=== PATIENT | male | born 1990 | race Caucasian/White ===

== ENCOUNTER 2017-08-11 08:51 | Emergency (ER) | payer BC ==
[~2017-08-11] VITALS: Ht 182.9 cm; Wt 101.4 kg
[~2017-08-11 08:51] MED LIST: ALBU1AER9 INH; BUSP5TAB59 PO; DICY20TA35 PO; METHPOW7 PO; MULT-506 PO; POLY335019 PO
[2017-08-11 09:02] VITALS: TEMP 36.4; Ht 182.9 cm; Wt 101.4 kg
[2017-08-11] MEDS ORDERED: SODIUM CHLORIDE 0.9% 1000ML 1,000 ML IV STA (09:21)
[2017-08-11] MEDS ORDERED: FOSAPREPITANT DIMEGLUMINE INJ 150 MG in SODIUM CHLORIDE 0.9% 150ML 145 ML IV ONE (09:30)
[2017-08-11 09:58] LABS: BASO % 0.2 %; BASO ABS # 0.02 K/uL (0-0.2); COMPLETE YES; IG% 0.3 %; LYMPH % 8.1 %; LYMPH ABS # 0.77 K/uL (1.2-3.4); MEAN CORPUSCULAR HEMOGLOBIN 30.6 pg (25-34); MEAN CORPUSCULAR HGB CONC 35.6 g/dl (32-36); MEAN PLATELET VOLUME 10.2 fL (7.4-10.4); MONO % 2.9 %; NEUT % 88.5 %; PLATELET COUNT 228 K/uL (130-400); RED BLOOD COUNT 5.23 M/uL (4.7-6.1); WHITE BLOOD COUNT 9.53 K/uL (4.8-10.8)
--- NOTE | 2017-08-11 10:06 | DIAGNOSTIC IMAGING REPORT ---
ABDOMEN 2VIEW W/PA CHEST RTN CLINICAL HISTORY: Abdominal pain and vomiting COMPARISON STUDY: 04/13/2015 FINDINGS: The erect chest reveals no evidence of free air. There is no evidence of focal pulmonary consolidation.] Erect and supine views of the abdomen reveal no abnormally dilated loops of large or small bowel. There are no transition zone to indicate bowel obstruction. IMPRESSION: No evidence of bowel obstruction. No evidence of free air. Electronically signed by: Yohannes Alston M.D. 08/11/2017 10:04 AM Dictated Date/Time: 08/11/2017 10:04 AM
[2017-08-11 10:15] LABS: BUN/CREATININE RATIO 13.2 (10-20); CALCIUM 9.4 mg/dl (8.5-10.1); CREATININE 1.39 mg/dl (0.60-1.40); POTASSIUM 3.9 mmol/L (3.5-5.1)
[2017-08-11] MEDS ORDERED: OPTIRAY 320 IV PRN (10:45)
[2017-08-11] MEDS ORDERED: VNTHFA/IN INH (11:32)
[2017-08-11 11:33] LABS: URINE APPEARANCE CLEAR (CLEAR); URINE BILIRUBIN NEG (NEG); URINE COLOR YELLOW; URINE EPITHELIAL CELL AUTO 0-5 /lpf (0-5); URINE NITRITE NEG (NEG); URINE PH >= 9.0 (4.5-7.5); URINE SPECIFIC GRAVITY 1.031 (1.000-1.030); UROBILINOGEN NEG (NEG)
--- NOTE | 2017-08-11 11:34 | DIAGNOSTIC IMAGING REPORT ---
CT OF THE ABDOMEN AND PELVIS WITH CONTRAST CLINICAL HISTORY: Bilateral lower abdominal pain and cramping. COMPARISON STUDY: CT of the abdomen and pelvis April 05, 2012 and abdominal series with chest radiograph performed earlier today. TECHNIQUE: Following IV administration of 93 mL of Optiray-320, axial images of the abdomen and pelvis were obtained from the lung bases to the proximal femurs. Images were reviewed in the axial, sagittal, and coronal planes. IV contrast was administered without complication. A dose lowering technique was utilized adhering to the principles of ALARA. CT DOSE: 621.60 mGycm FINDINGS: The lung bases are clear. Moderate left hydronephrosis is unchanged from earlier exams and likely due to a congenital UPJ obstruction. There is mild left renal cortical thinning. The right kidney is normal. There is mild dilatation of the right renal pelvis which is unchanged. A hypodense tubular structure within the right lateral aspect of the pelvis is unchanged from earlier exams. This likely reflects chronic dilatation of the distal right ureter. The liver, spleen, adrenal glands and pancreas are normal. There is no biliary or pancreatic ductal dilatation. There is no peripancreatic or pericholecystic infiltration. The appendix is not visualized. No free fluid is present. There is no pneumatosis, free air or portal venous gas. Caliber and wall thickness of small and large bowel are normal. There are no suspicious osseous lesions. IMPRESSION: 1. No acute process within the abdomen or pelvis. 2. No change in moderate left hydronephrosis since prior exams suggestive of a congenital UPJ obstruction. Mild left renal cortical thinning. 3. No change in a tubular hypodense right pelvic structure which likely reflects stable chronic dilatation of the distal right ureter. Electronically signed by: Bryan Lucero M.D. 08/11/2017 11:33 AM Dictated Date/Time: 08/11/2017 10:59 AM
[2017-08-11 11:38] LABS: MANUAL MICROSCOPIC REQUIRED? NO; REVIEW REQ? NO; SULFASALICYLIC ACID NEG (NEG)
[2017-08-11 12:18] VITALS: BP 124/72; PULSE 88; O2SAT 98
--- NOTE | 2017-08-11 15:10 | EMERGENCY ROOM VISIT NOTE ---
ED Visit Note First contact with patient: 09:06 Chief Complaint: Abdominal pain, nausea and vomiting. History of Present Illness: Mr. Snow is a 26 year-old white male complaining of bilateral lower quadrant abdominal pain, nausea and vomiting. Historically patient reports he has been having ongoing issues with nausea, vomiting abdominal pain for the last 2-3 years. He has had multiple admissions for irretractable nausea and vomiting. He has seen gastroenterology and has had multiple diagnostic studies done and no exact cause has been identified for his ongoing symptoms. Patient reports a acute onset of bilateral lower quadrant abdominal pain that started approximately 3 ago. Since that time the pain has been constant but has waxed and waned in intensity. The pain is currently described as "my gut is twisting." He places his discomfort just inferior to the umbilicus bilaterally. The pain is nonradiating. He currently rates his discomfort 5/ 10. Vomiting worsens his pain. He has not identified any alleviating factors related to the pain. He took his prescribed Bentyl and Zofran approximately 8 hours prior to arrival at the hospital without resolution of symptoms. Associated with his pain he reports he has been having chills and diaphoresis, lightheadedness, nausea and multiple episodes of bile-like vomiting and soft stools but no yosvany diarrhea. Patient denies skin eruptions, skin color changes, upper respiratory tract symptoms, shortness of breath, chest pain, rectal bleeding, black/tarry stools, urinary symptoms, hematuria, back/flank pain. Review of Systems: As noted above in history of present illness. All body systems were reviewed and found to be negative as noted above. Past Medical History: As previously noted and asthma and status post appendectomy. Current Medications: MiraLAX, Bentyl, buspirone, Citrucel fiber laxative, multivitamins, albuterol Allergies to Medications: Lactulose, cephalosporins, penicillin, sulfa. Social History: Patient is currently employed; he feels safe in his home environment; he denies tobacco use and admits to alcohol use. Physical Examination: Vital Signs: Date Time Temp Pulse Resp B/P (MAP) Pulse Ox O2 Delivery O2 Flow Rate FiO2 08/11/17 12:18 88 16 124/72 98 08/11/17 11:19 65 16 164/72 98 Room Air 08/11/17 09:41 55 20 152/75 100 57 154/67 69 169/74 08/11/17 09:38 66 08/11/17 09:02 36.4 75 18 146/82 100 Room Air GENERAL: -year-old female in mild to moderate distress due to pain, nontoxic- appearing, afebrile and hemodynamically stable. NEUROLOGICAL: Awake, alert and oriented to person, place and time. Answering questions appropriately and following commands. Normal gait. Good hand eye coordination. SKIN: Warm, dry and pink. No soft tissue eruptions or trauma noted. HEENT: Atraumatic and normocephalic. PERRL. Sclera white and conjunctiva pink. Oral cavity moist and pink. Pharynx is nonerythematous or edematous. Speech normal. No lymphadenopathy. Trachea midline. No jugular venous distention. BACK: No tenderness over the bony spine. No CVA tenderness. THORAX: Lungs sounds are clear to auscultation and equal bilaterally with symmetrical chest wall. No wheezing, rales or rhonchi. No crepitus, tenderness , subcutaneous air or deformities noted. HEART: Regular rate and rhythm. No gallops, rubs or murmurs are appreciated. ABDOMEN: Flat, soft and nontender. Positive bowel sounds in all quadrants. No guarding, rigidity or organomegaly. EXTREMITIES: Moves all extremities well on command and with purpose. All distal neurovascular statuses are intact and equal bilaterally. ED Course: Patient is assessed as noted above. Laboratory Testing: Test 08/11/17 09:40 08/11/17 11:00 Range/Units White Blood Count 9.53 4.8-10.8 K/uL Red Blood Count 5.23 4.7-6.1 M/uL Hemoglobin 16.0 14.0-18.0 g/dL Hematocrit 45.0 42-52 % Mean Corpuscular Volume 86.0 80-100 fL Mean Corpuscular Hemoglobin 30.6 25-34 pg Mean Corpuscular Hemoglobin Concent 35.6 32-36 g/dl Platelet Count 228 130-400 K/uL Mean Platelet Volume 10.2 7.4-10.4 fL Neutrophils (%) (Auto) 88.5 % Lymphocytes (%) (Auto) 8.1 % Monocytes (%) (Auto) 2.9 % Eosinophils (%) (Auto) 0.0 % Basophils (%) (Auto) 0.2 % Neutrophils # (Auto) 8.43 1.4-6.5 K/uL Lymphocytes # (Auto) 0.77 1.2-3.4 K/uL Monocytes # (Auto) 0.28 0.11-0.59 K/uL Eosinophils # (Auto) 0.00 0-0.5 K/uL Basophils # (Auto) 0.02 0-0.2 K/uL RDW Standard Deviation 41.6 36.4-46.3 fL RDW Coefficient of Variation 13.1 11.5-14.5 % Immature Granulocyte % (Auto) 0.3 % Immature Granulocyte # (Auto) 0.03 0.00-0.02 K/uL Sodium Level 138 136-145 mmol/L Potassium Level 3.9 3.5-5.1 mmol/L Chloride Level 105 98-107 mmol/L Carbon Dioxide Level 24 21-32 mmol/L Anion Gap 9.0 3-11 mmol/L Blood Urea Nitrogen 18 7-18 mg/dl Creatinine 1.39 0.60-1.40 mg/dl Est Creatinine Clear Calc Drug Dose 101.0 ml/min Estimated GFR () 81.6 Estimated GFR (Non- 70.4 BUN/Creatinine Ratio 13.2 10-20 Random Glucose 133 70-99 mg/dl Calcium Level 9.4 8.5-10.1 mg/dl Total Bilirubin 0.8 0.2-1 mg/dl Direct Bilirubin 0.2 0-0.2 mg/dl Aspartate Amino Transf (AST/SGOT) 35 15-37 U/L Alanine Aminotransferase (ALT/SGPT) 44 12-78 U/L Alkaline Phosphatase 53 45-117 U/L Total Protein 7.5 6.4-8.2 gm/dl Albumin 4.5 3.4-5.0 gm/dl Lipase 161 73-393 U/L Urine Color YELLOW Urine Appearance CLEAR CLEAR Urine pH >= 9.0 4.5-7.5 Urine Specific [place] 1.031 1.000-1.030 Urine Protein NEG NEG Urine Glucose (UA) NEG NEG Urine Ketones 3+ NEG Urine Occult Blood NEG NEG Urine Nitrite NEG NEG Urine Bilirubin NEG NEG Urine Urobilinogen NEG NEG Urine Leukocyte Esterase NEG NEG Urine WBC (Auto) 0 0-5 /hpf Urine RBC (Auto) 0-4 0-4 /hpf Urine Hyaline Casts (Auto) 0 0-5 /lpf Urine Epithelial Cells (Auto) 0-5 0-5 /lpf Urine Bacteria (Auto) NEG NEG Acute Abdominal Series: Was read by myself and the radiologist showing a normal PA chest with no signs of infiltrates, effusions or pneumothorax. Normal heart silhouette and bony abnormalities. Abdominal component shows a nonobstructive bowel gas pattern with no dilated loops of bowel or transitions zones. No free air under the diaphragm. IV Contrast Abdominal/Pelvic CT: Was reviewed by myself and read by the radiologist showing no acute process within the abdomen or pelvis. No change to moderate left hydronephrosis since previous examination suggestive of congenital UPJ obstruction, mild left renal cortical thinning, tubular hypodensity in the right pelvic structure. Patient was hydrated with normal saline and received 150 mg of Emend IV for nausea/vomiting. Patient was reassessed multiple times during his stay in the emergency department. Patient's case was reviewed with Dr. Manning; we agreed on diagnostic approach, treatment, disposition and plan. Patient was educated about today's findings and instructed on his treatment plan ; he verbalizes understanding and agreement with this plan. Clinical Impression: Bilateral lower quadrant abdominal pain. Nausea/vomiting. Decision-Making: Initially my differential diagnosis I considered bowel obstruction, gastritis, acute abdomen, acute on chronic GI issues, pancreatitis and other causes. Disposition: Patient discharged home in stable condition accompanied by male friend; prior to departure he was reassessed and subjectively reported he was pain-free and had no additional vomiting while in the emergency department but was still slightly nauseated. Plan: Patient was encouraged to continue his current medications as prescribed. Patient was encouraged to use ibuprofen or acetaminophen as needed for pain. Patient was encouraged use bland diet for next 48 hours and stay well hydrated. 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 Patient was encouraged return ED for return of symptoms, worsening of symptoms, fevers, bloody vomitus or any new/concerning symptoms.
== END 2017-08-11 12:19 | disposition home or self-care (01) ==
LOC: C.EDB 08:52
DX: R10.30 Lower abdominal pain, unspecified (principal); R11.2 Nausea with vomiting, unspecified; J45.909 Unspecified asthma, uncomplicated